=== PATIENT | male | born 1955 | race Caucasian/White ===

== ENCOUNTER 2023-11-28 06:28 | Day surgery (SDC) | payer MEDICARE, OTHER, SELFPAY ==
[2023-11-28 14:22] VITALS: BMI 27.7
[2023-11-28 14:42] VITALS: BP 144/73
[2023-11-28 17:45] VITALS: BP 120/71
[2023-11-28 18:00] VITALS: BP 155/95
== END 2023-11-28 18:35 | disposition home or self-care (01) ==
LOC: GI 06:28
PROVIDERS: ATTENDING PHYSICIAN Internal Medicine Gastroenterology
DX: Z12.11 Encounter for screening for malignant neoplasm of colon (principal); D12.3 Benign neoplasm of transverse colon; K57.30 Diverticulosis of large intestine without perforation or abscess without bleeding; K64.0 First degree hemorrhoids; Z86.010 Personal history of colon polyps; Z98.890 Other specified postprocedural states
CPT/HCPCS: 45385; 45380; 88305

== ENCOUNTER → 2024-01-23 | Outpatient (REF) | payer MEDICARE, OTHER, SELFPAY | LOC: DHSLP | PROVIDERS: ATTENDING PHYSICIAN Family Medicine | DX: G47.33 Obstructive sleep apnea (adult) (pediatric) (principal) | CPT/HCPCS: 95810 ==

== ENCOUNTER 2025-04-08 06:01 | Day surgery (SDC) | payer MEDICARE, OTHER, SELFPAY ==
[2025-04-08 08:30] VITALS: BP 144/94; BMI 26.9
[2025-04-08 08:55] VITALS: BMI 26.9
[2025-04-08 11:05] VITALS: BP 107/83
[2025-04-08 11:15] VITALS: BP 117/83
[2025-04-08 11:30] VITALS: BP 126/87
== END 2025-04-08 12:00 | disposition home or self-care (01) ==
LOC: SDS 06:01
PROVIDERS: ATTENDING PHYSICIAN Internal Medicine Gastroenterology
DX: Z12.11 Encounter for screening for malignant neoplasm of colon (principal); D12.2 Benign neoplasm of ascending colon; K63.5 Polyp of colon; K57.30 Diverticulosis of large intestine without perforation or abscess without bleeding; K64.8 Other hemorrhoids; Z86.0101 Personal history of adenomatous and serrated colon polyps; Z98.890 Other specified postprocedural states
CPT/HCPCS: 45385; 45380; 88305

== ENCOUNTER 2025-06-30 06:29 | Day surgery (SDC) | payer MEDICARE, OTHER, SELFPAY | END 2025-06-30 14:01 | disposition home or self-care (01) | LOC: GI 06:29 | PROVIDERS: ATTENDING PHYSICIAN Internal Medicine Gastroenterology | DX: R13.10 Dysphagia, unspecified (principal); Q39.9 Congenital malformation of esophagus, unspecified; K22.89 Other specified disease of esophagus; K29.50 Unspecified chronic gastritis without bleeding | CPT/HCPCS: 43239; 88305; 88342 ==